=== PATIENT | male | born 1955 | race Caucasian/White ===

== ENCOUNTER → 2021-01-31 | Outpatient (CLI) | payer OTHER ==
[~2021-01-31] MED LIST: ASA81BEC PO; LOSARTAN POTASS50 MG PO; VITAMIN D350 MC3 PO
== END ==
LOC: LAB 08:18
PROVIDERS: Orthopaedic Surgery Sports Medicine; ATTEND Student in an Organized Health Care Education/Training Program
DX: Z01.812 Encounter for preprocedural laboratory examination (principal); Z20.822 Contact with and (suspected) exposure to COVID-19

== ENCOUNTER 2021-02-01 06:29 | Day surgery (SDC) | payer OTHER ==
[~2021-02-01] VITALS: Ht 180.3 cm; Wt 93.0 kg
[2021-02-01 07:24] VITALS: BP 145/83
--- NOTE | 2021-02-01 16:04 | O ---
[address] [address] OPERATIVE REPORT Name: CLEVELAND ALSTON Room #: 150-4 [facility]..#: [id number] Admission: 02/01/21 Attend Phys: Edwardo Lamas MD Discharge: Date of : 53 Report #: [id number] THIS REPORT FOR: cc: FAM - Family physician unknown FAM - Family physician unknown Edwardo Lamas MD ~ DATE OF SERVICE: 02/01/2021 SERVICE: Orthopedics. FACILITY: [facility]. SURGEON: Edwardo Lamas MD RAYON WINDER: Mandy francis NP INDICATIONS FOR RAYON WINDER: Extremity positioning, suture management, arthroscope management, assistance with repair. PREOPERATIVE DIAGNOSES: 1. Left hip pain. 2. Left hip femoral acetabular impingement. 3. Left hip acetabular labral tear. 4. Left hip chondromalacia. POSTOPERATIVE DIAGNOSES: 1. Left hip pain. 2. Left hip femoral acetabular impingement. 3. Left hip acetabular labral tear. 4. Left hip chondromalacia. PROCEDURE PERFORMED: 1. Left hip arthroscopic labral repair. 2. Left hip arthroscopic Cam osteoplasty. 3. Left hip arthroscopic chondroplasty. COMPLICATIONS: None. DRAINS: None. SPECIMENS: None. ANESTHESIA: General with regional. FINDINGS: 1. No evidence of osteoarthritis. [address] [address] OPERATIVE REPORT Name: CLEVELAND ALSTON Room #: 150-4 [facility]#: [id number] Admission: 02/01/21 Attend Phys: Edwardo Lamas MD Discharge: Date of : 53 Report #: [id number] 2. Grade 2 and 3 chondromalacia of the anterior 20% of the acetabular articular cartilage with no full thickness lesions. 3. Partial thickness articular cartilage lesion of the femoral head without any exposed subchondral bone. 4. Fully detached anterior labral tear, treated with a Aracely CinchLock suture anchor x 2 for anatomic reduction. 5. Decompression of the paralabral cyst arthroscopically. 6. Moderate Cam deformity treated with a partial limited Cam osteoplasty due to bone density. 7. Capsular repair with #2 Vicryl x 3. HISTORY: The patient is a 65-year-old gentleman who is very active with tennis and is having significant pain affecting his ability to participate in tennis over the past several years. He had an acute onset of pain two years ago while playing and has had persistent daily pain that was worsening and affecting his activities of daily living. He was initially seen by an arthroplasty specialist who assessed him and evaluated him and felt that he was not a good candidate for total hip arthroplasty due to his well-maintained joint space. He had an MRI. He had an intra-articular injection, which provided temporary pain relief. He had x-rays, which were consistent with femoral acetabular impingement with a normal joint space and his Tonnis grade is 0. Risks, benefits, alternatives and indications for surgery were discussed with him in detail. Preoperative conservative measures to include rest, activity modification, physical therapy, oral medicines, intra-articular injection and modalities. Risks include but not limited to pain, bleeding, infection, injuring nerves or blood vessels, persistent pain despite surgical intervention, failure of any repairs, progression of preexisting chondral injury, stiffness, need for further surgery as well as complications related to anesthesia. We had a lengthy discussion specifically about the risk of possible need for conversion arthroplasty or progression of articular cartilage pathology. He understood this risk, but wished to move forward in this direction in lieu of living with the pain as is or pursuing a total hip arthroplasty against the recommendation of his arthroplasty physician. DESCRIPTION OF PROCEDURE: After left lower extremity was correctly identified in the preoperative holding area, the operative extremity, the patient underwent regional nerve block. He was then taken to the operating room. General anesthesia was induced without complications. He was padded appropriately. Prophylactic antibiotics were administered in appropriate time. C-arm was used to identify the extent of the Cam deformity. Left hip was then prepped and draped in standard sterile fashion. Timeout procedure performed. Traction was applied. Standard anterolateral viewing portal was established and then we worked on the anteromedial portal. The anterior and anterolateral labrum were fully detached from the acetabular rim and so the labrum traveled [address] [address] OPERATIVE REPORT Name: ALECIACLEVELAND HOWARD Room #: 150-4 [facility] M.R.#: [id number] Admission: 02/01/21 Attend Phys: Edwardo Lamas MD Discharge: Date of : 53 Report #: [id number] distally with the femoral head under traction, which made access difficult. I cannulated with the spinal needle and established the mid anterior portal, but obtaining good ability to lift the labrum up and perform the transverse capsulotomy was quite difficult. Ultimately, I was unable to do so with just the two portals and so I placed a third portal in a distal anterolateral accessory position and cannulated this, which allowed a switching stick to be used to elevate the labrum and then place the anterolateral portal in the appropriate position, then to allow the transverse capsulotomy. There was a significant amount of synovitis and erythema within the capsule. This will be the indication for continuous passive motion machine used postoperatively in order to reduce the risk of scarring and adhesions. After the transverse capsulotomy was performed, the chondral debris that was noted to be floating within the hip was thoroughly lavaged and then a shaver was used to debride the capsular tissue off the dorsal side of the detached labrum. This allowed access to the acetabular rim and then the bur was used to gently abrade and decorticate the bone in order to create a fresh bleeding surface for labral repair and refixation. I used the shaver around the corner laterally where the location of the paralabral cyst was located and debrided on the dorsal side of the labrum in this vicinity to decompress the cyst. Final preparation for the repair were completed, I assessed the tissue overall, there was obviously chondromalacia on both the femoral head and the acetabulum, but there were no full thickness lesions and this did not have the look of osteoarthritis. With the detached labrum being a likely source for many of the symptoms he is having as well as mechanical catching, felt that it was appropriate to at least attempt a repair. Ultimately, the tissue retained suture very well. We placed the first anchor at the anterolateral position and elevated the labrum back to the acetabular rim into its anatomic position. This allowed for much better visualization of the acetabular pathology and the entire acetabulum. At this point, second anchor was placed more anteriorly and the shaver was used to perform a chondroplasty of the grade 3 chondromalacia at the chondral labral junction and anterior acetabulum. The labrum was probed and felt to be stable. I switched the scope to the anteromedial portal and made the working portal laterally and probed again and confirmed stability of the chondral labral junction. Traction was let down. The hip was flexed up. Attention turned towards the peripheral compartment. He had a Cam deformity that was somewhat unique in its appearance. There was a crevice running essentially parallel to the labrum where there was a prominent ridge of bone, distal to this that was dense superficially, but quite soft underneath that particular location. I used a bur to perform a Cam osteoplasty, resecting this ridge, specifically with the specific effort as well to limit the bone resection due to his age. I removed the instruments, brought C-arm in, I then felt that there was some additional bone distally that could be resected and place the instruments back in the hip, and then used the bur to gently continue with the Cam osteoplasty. The bone after decortication was soft and I was of the mindset that additional bone resection was not likely to yield additional significant long-term benefit. After resection of the pathologic [address] [address] OPERATIVE REPORT Name: CLEVELAND ALSTON Room #: 150-4 [facility] M.R.#: [id number] Admission: 02/01/21 Attend Phys: Edwardo Lamas MD Discharge: Date of : 53 Report #: [id number] ridge of bone and in order to minimize the risk of any complications such as femoral neck fracture, I elected to cease bone resection. At this point, I took final x-rays, lavaged the bony debris out of the hip and then closed the transverse capsulotomy with a total of three #2 Vicryl sutures. Instruments were removed. Portal sites were closed. Sterile dressing was applied. The patient was awakened from anesthesia and taken to recovery room in stable condition. There were no complications. All counts were reported as correct. <ELECTRONICALLY SIGNED> By: Edwardo Lamas MD 02/01/21 [id number] Edwardo Lamas MD /nt
== END 2021-02-01 11:30 | disposition home or self-care (01) ==
LOC: OR → TBA 06:38 → OR 08:18
PROVIDERS: ATTEND Orthopaedic Surgery Sports Medicine
DX: M25.552 Pain in left hip (principal); M25.852 Other specified joint disorders, left hip; S73.102A Unspecified sprain of left hip, initial encounter; M94.252 Chondromalacia, left hip; I10 Essential (primary) hypertension; I48.91 Unspecified atrial fibrillation; Z98.890 Other specified postprocedural states; Z79.899 Other long term (current) drug therapy; Z79.01 Long term (current) use of anticoagulants; Z85.46 Personal history of malignant neoplasm of prostate; Z87.442 Personal history of urinary calculi; X58.XXXA Exposure to other specified factors, initial encounter; Y93.89 Activity, other specified; Y92.89 Other specified places as the place of occurrence of the external cause; Y99.8 Other external cause status
CPT/HCPCS: 50010; 50101; 50386; 51320; 51538; 52001; 52282; 52304; 52313; 56524; 56527; 57092; 57103; 58273; 58274; 58557; 58558; 58559; 58560; 58561; 58562; 58563; 58564; 58608; 62110; 62900; 64043; 65060; 70005

== ENCOUNTER 2021-02-02 18:47 | Emergency (ER) | payer OTHER ==
[~2021-02-02] VITALS: Ht 180.3 cm; Wt 94.3 kg
[2021-02-02 20:56] VITALS: BP 140/80
== END 2021-02-02 20:56 | disposition home or self-care (01) ==
LOC: ER 18:47
DX: M79.672 Pain in left foot (principal); I48.91 Unspecified atrial fibrillation; I10 Essential (primary) hypertension; Z90.89 Acquired absence of other organs; Z79.82 Long term (current) use of aspirin; Z79.899 Other long term (current) drug therapy; Z88.8 Allergy status to other drugs, medicaments and biological substances